=== PATIENT | male | born 1935 | race Two or more races ===

== ENCOUNTER 2019-06-19 10:44 | Emergency (ER) | payer MEDICARE ==
[2019-06-19 11:13] VITALS: BP 123/68
--- NOTE | 2019-06-19 11:28 | UC ---
General HPI - HPI Summary HPI Summary: Pleasant 84 yo gentleman presents accompanied by daughter. She was called from [facility] this am, staff noted that Mr. Mckeon was holding hand over his chest, c/o chest tightness and difficulty breathing. (wheezing?). Further details are unclear. Daughter came to his home, brought him here for evaluation. Currently without complaint. However, Mr. Mckeon is concerned about frequent nose bleeds over the last week or so. Takes eliquis (switched from warfarin) by pcp, Dr. Harrington. Wanted to see pcp today, but no openings. No recent fever / chills. No recent hospitalizations. No report of gi issues. 1st person ROS is limited d/t NC decline, as such poor historian. 2nd person ROS per daughter limited d/t she was called by home (she wasn't there when sx occurred). - History of Current Complaint Chief Complaint: UCRespiratory Stated Complaint: COPD,TIGHTNESS OF CHEST,WHEEZING Time Seen by Provider: 06/19/19 11:27 Hx Obtained From: Patient, Family/[employer] Pain Intensity: 0 - Allergy/Home Medications Allergies/Adverse Reactions: Allergies Allergy/AdvReac Type Severity Reaction Status Date / Time seasonal Allergy Congestion Uncoded 06/19/19 11:04 Home Medications: Home Medications Acetaminophen TAB* [Tylenol TAB*] 650 mg PO Q4H PRN 06/19/19 [History Confirmed 06/19/19] Albuterol inh POWDER (NF) [Proair Respiclick] 108 mcg IN QID PRN 06/19/19 [ History Confirmed 06/19/19] Apixaban* [Eliquis*] 5 mg PO Q12H 06/19/19 [History Confirmed 06/19/19] Ascorbic Acid TAB* [Vitamin C TAB*] 500 mg PO DAILY 06/19/19 [History Confirmed 06/19/19] Budesonide/Formote 160/4.5(NF) [Symbicort 160/4.5 (NF)] 2 puff INH BID 06/19/19 [History Confirmed 06/19/19] Cholecalciferol (Vitamin D3) [Vitamin D3] 1,000 unit PO DAILY 06/19/19 [History Confirmed 06/19/19] Eucalyptus/Menthol [Castellanos Cough Drops] 1 kyung MT Q1HR PRN 06/19/19 [History Confirmed 06/19/19] Hydrocortisone SUPP* [Anusol HC Supp*] 25 mg .SEE ORDER 06/19/19 [History] Loperamide HCl [Imodium A-D] 2 mg PO QID PRN 06/19/19 [History Confirmed ] Loratadine 10 mg PO DAILY 06/19/19 [History Confirmed 06/19/19] Psyllium BEA* [Metamucil BEA*] 1 pkt PO DAILY 06/19/19 [History Confirmed ] Terazosin CAP* [Hytrin CAP*] 2 mg PO BEDTIME 06/19/19 [History Confirmed ] guaiFENesin [Mucus Relief] 400 mg PO Q12H PRN 06/19/19 [History Confirmed ] raNITIdine HCl [Ranitidine HCl] 150 mg PO AC 06/19/19 [History Confirmed ] PMH/Surg Hx/FS Hx/Imm Hx Previously Healthy: No - see below Cardiovascular History: Cardiac Disease Neurological History: Other - neurocognitive decline - Surgical History Surgical History: Yes Surgery Procedure, Year, and Place: [facility] toe ~2010 - Family History Known Family History: Positive: Cardiac Disease - Social History Lives: Assisted Living Alcohol Use: None Substance Use Type: None Smoking Status (MU): Former Smoker Have You Smoked in the Last Year: No When Did the Patient Quit Smoking/Using Tobacco: 40 YEARS Review of Systems All Other Systems Reviewed And Are Negative: Yes Constitutional: Positive: Other - see hpi Skin: Positive: Other - see hpi Eyes: Positive: Other - see hpi ENT: Positive: Other - see hpi Respiratory: Positive: Other - see hpi Cardiovascular: Positive: Other - see hpi Gastrointestinal: Positive: Other - see hpi Genitourinary: Positive: Other - see hpi Motor: Positive: Other - see hpi Neurovascular: Positive: Other - see hpi Musculoskeletal: Positive: Other: - see hpi Neurological: Positive: Other - see hpi Is Patient Immunocompromised?: No Physical Exam Triage Information Reviewed: Yes Appearance: Well-Appearing, Well-Nourished - sitting up in chair, conversing in full sentances. NAD. Frail but nontoxic general appearance. Vital Signs: Initial Vital Signs Temp 98.7 F 06/19/19 11:06 Pulse 63 06/19/19 11:06 Resp 18 06/19/19 11:06 BP 123/68 06/19/19 11:06 Pulse Ox 96 06/19/19 11:06 Vital Signs Reviewed: Yes Eye Exam: Normal - arcus scl, but nad. ENT Exam: Other - R cerumen impaction L TM dull, ma Nares - no active bleeding or recent exchars noted. There is some swelling of turbinate R nare ENT: Positive: Pharynx normal Neck exam: Other - + arthritic. No c/o pain Respiratory Exam: Other - BS equal, full. No gabbie adventitious sounds. RR normal Cardiovascular Exam: Other - HR regular, + murmur. HR correlates with L radial pulse Abdominal Exam: Other - sitting up, abd grossly benign Abdomen Description: Positive: Nontender Musculoskeletal Exam: Other - moves x 4 ext's. several bruises of varying color c/w chronic anticoag use Neurological Exam: Other - Neurocogn - baseline per daughter. No focal findings on general exam noted Psychological: Positive: Normal Response To Family Skin Exam: Other - some scattered eccymosis and hemosideroses. nondiaphoretic. good coloration. Course/Dx - Course Course Of Treatment: Pt's daughter brought him to be checked d/t concern about possible cardiac or pulm issues. BS ok EKG - no old for comp in [place]. + atrail fib at 62 bpm with BL LAD. D/w pt and daughter. The etiology of chest tightness / sob is unclear. He feels better now. Will go to the Emerg Dept for further evaluation and treatment. EMS declined, daughter will drive. Questions as posed answered to the best of my ability. D/w Dr. Mayen via telephone prior to pt's departure. - Diagnoses Provider Diagnosis: Chest tightness, Dyspnea Discharge - Sign-Out/Discharge Documenting (check all that apply): Patient Departure All imaging exams completed and their final reports reviewed: No Studies - Discharge Plan Condition: Stable Disposition: HOME-RECOMMEND TO ED Patient Education Materials: Chest Pain (ED), Dyspnea (ED) Referrals: Ezra Harrington MD [Primary Care Provider] - Additional Instructions: Please go directly to the Emergency Department. Stop and call 911 en route, if any problems. - Billing Disposition and Condition Condition: STABLE Disposition: Home-Recommend to ED
== END 2019-06-19 12:23 | disposition home health service (06) ==
LOC: UCCORT 10:44
DX: R07.89 Other chest pain (principal); R06.00 Dyspnea, unspecified; Z87.891 Personal history of nicotine dependence
CPT/HCPCS: 93005; 99212; G0463